=== PATIENT | female | born 1985 | race Two or more races ===

== ENCOUNTER 2023-08-26 09:32 | Emergency (ER) | payer MEDICAID ==
[~2023-08-26] VITALS: Ht 162.6 cm; Wt 86.2 kg
[2023-08-26] MEDS ORDERED: diphenhydrAMINE 50 MG/1 ML VIAL IV ONE (10:15)
[2023-08-26] MEDS ORDERED: IV NORMAL SALINE 1000 ML BAG IV ONE (10:15)
[2023-08-26] MEDS ORDERED: diphenhydrAMINE 50 MG/1 ML VIAL ONE (10:24)
[2023-08-26 10:33] LABS: BASOPHILS # (AUTO) 0.2 K/UL (0.0-0.2); BASOPHILS % (AUTO) 2.7 % (0.0-2.0); EOSINOPHILS # (AUTO) 0.5 K/uL (0.0-0.7); EOSINOPHILS % (AUTO) 5.5 % (0.0-7.0); HEMATOCRIT 37.9 % (31.2-41.9); HEMOGLOBIN 12.4 g/dL (10.9-14.3); LYMPHOCYTES # (AUTO) 1.3 K/uL (0.8-4.8); LYMPHOCYTES % (AUTO) 14.6 % (20.5-51.5); MEAN CORPUSCULAR HEMOGLOBIN 26.7 uug (24.7-32.8); MEAN CORPUSCULAR HGB CONC 33 g/dL (32.3-35.6); MEAN CORPUSCULAR VOLUME 81.7 fL (75.5-95.3); MONOCYTES # (AUTO) 0.5 K/uL (0.1-1.30); MONOCYTES % (AUTO) 5.6 % (0.0-11.0); NEUTROPHILS # (AUTO) 6.3 K/uL (1.8-8.9); NEUTROPHILS % (AUTO) 71.6 % (38.5-71.5); PLATELET COUNT (AUTO) 481 K/uL (179-408); RED BLOOD CELL COUNT(AUTO) 4.64 MIL/uL (3.63-4.92); RED CELL DISTRIBUTION WIDTH 15.7 % (12.3-17.7); WHITE BLOOD COUNT (AUTO) 8.9 K/uL (3.8-11.8)
[2023-08-26 10:45] LABS: BILIRUBIN,TOTAL 0.5 mg/dL (0.2-1.0); CALCIUM 9.5 mg/dL (8.5-10.1); CREATININE 0.8 mg/dL (0.6-1.3); POTASSIUM 4.3 mmol/L (3.5-5.1); TOTAL PROTEIN, SERUM 8.1 g/dL (6.4-8.2)
[2023-08-26 10:51] LABS: DIFFERENTIAL COMMENT 1
[2023-08-26 10:53] LABS: THYROID STIMULATING HORMONE 1.217 mIU/mL (0.358-3.740)
[2023-08-26] MEDS ORDERED: DIPH25CA83 PO (11:36)
[2023-08-26 12:15] VITALS: O2SAT 99
[2023-08-26 12:23] LABS: MAGNESIUM 2.1 mg/dL (1.8-2.4); PHOSPHOROUS 3.7 mg/dL (2.5-4.9)
== END 2023-08-26 12:27 | disposition home or self-care (01) ==
LOC: ER 09:32
DX: L29.9 Pruritus, unspecified (principal); R00.2 Palpitations; R07.89 Other chest pain; Z90.49 Acquired absence of other specified parts of digestive tract; Z79.899 Other long term (current) drug therapy
CPT/HCPCS: 99285; 96374; 71045; 96361; 80053; 83735; 84100; 84443; 85025; 36415; 93005; J1200; J7040; A4606; A4663

== ENCOUNTER 2024-06-06 09:17 | Emergency (ER) | payer MEDICAID, MEDICARE, OTHER ==
[~2024-06-06] VITALS: Ht 165.1 cm; Wt 86.2 kg
[~2024-06-06 09:17] MED LIST: DIPH25CA83 PO
[2024-06-06] MEDS ORDERED: HYDROCODONE/APAP 10-325 MG TABLET ONE (09:50)
[2024-06-06 10:00] LABS: BASOPHILS % (AUTO) 0.3 % (0.0-2.0); EOSINOPHILS # (AUTO) 0.4 K/uL (0.0-0.7); EOSINOPHILS % (AUTO) 3.3 % (0.0-7.0); HEMATOCRIT 35.7 % (31.2-41.9); HEMOGLOBIN 11.5 g/dL (10.9-14.3); LYMPHOCYTES # (AUTO) 1.3 K/uL (0.8-4.8); LYMPHOCYTES % (AUTO) 11.1 % (20.5-51.5); MEAN CORPUSCULAR HEMOGLOBIN 26.3 uug (24.7-32.8); MEAN CORPUSCULAR HGB CONC 32 g/dL (32.3-35.6); MEAN CORPUSCULAR VOLUME 81.4 fL (75.5-95.3); MONOCYTES # (AUTO) 0.6 K/uL (0.1-1.30); MONOCYTES % (AUTO) 5.1 % (0.0-11.0); NEUTROPHILS # (AUTO) 9.2 K/uL (1.8-8.9); NEUTROPHILS % (AUTO) 80.2 % (38.5-71.5); PLATELET COUNT (AUTO) 405 K/uL (179-408); RED BLOOD CELL COUNT(AUTO) 4.38 MIL/uL (3.63-4.92); WHITE BLOOD COUNT (AUTO) 11.5 K/uL (3.8-11.8)
[2024-06-06] MEDS: HYDROCODONE/APAP 10-325 MG TABLET PO ONE (10:02)
[2024-06-06 10:11] LABS: CREATININE 0.8 mg/dL (0.6-1.3); DIFFERENTIAL COMMENT 1; POTASSIUM 4.4 mmol/L (3.5-5.1)
[2024-06-06 10:17] LABS: ALBUMIN 3.8 g/dL (3.4-5.0); BILIRUBIN,TOTAL 0.3 mg/dL (0.2-1.0); TOTAL PROTEIN, SERUM 7.5 g/dL (6.4-8.2)
[2024-06-06 10:30] LABS: *BILIRUBIN,URIN NEGATIVE (NEGATIVE); *BLOOD, URINE NEGATIVE (NEGATIVE); *CLARITY,URINE CLEAR (CLEAR); *COLOR,URINE YELLOW (YELLOW); *KETONES,URINE NEGATIVE (NEGATIVE); *PROTEIN,URINE 1+ (NEGATIVE); *UROBILINOGEN,URINE 0.2 E.U./dl (NORMAL); LEUKOCYTE ESTERASE ,URINE NEGATIVE (NEGATIVE); NITRITE, URINE NEGATIVE (NEGATIVE); PH,URINE 6.5 (5.0-8.0); UGLUCOSE NEGATIVE (NEGATIVE)
[2024-06-06 10:36] LABS: *URINE HCG, QUAL NEGATIVE (NEGATIVE)
[2024-06-06] MEDS ORDERED: ONDANSETRON ODT 4 MG TAB.RAPDIS SL ONE (11:00)
[2024-06-06 11:07] LABS: IRON, SERUM 26 ug/dL (50-175)
[2024-06-06 11:36] LABS: RBC,URINE NONE SEEN /HPF (0-3)
[2024-06-06 11:37] LABS: BACTERIA,URINE MODERATE /HPF (NONE SEEN); SQUAMOUS EPITHELIAL CELL,UR MODERATE /HPF (NONE SEEN); WBC,URINE 0-3 /HPF (0-3)
[2024-06-06] MEDS ORDERED: HYDR-3980 PO (12:24)
[2024-06-06] MEDS ORDERED: FLAS1EAC2 TP (12:24)
[2024-06-06] MEDS ORDERED: FLAS1KIT2 TP (12:24)
[2024-06-06] MEDS ORDERED: FERR325T23 PO (12:24)
[2024-06-06 12:36] VITALS: BP 107/58; O2SAT 98
== END 2024-06-06 12:39 | disposition home or self-care (01) ==
LOC: ER 09:19
DX: S30.0XXA Contusion of lower back and pelvis, initial encounter (principal); R55 Syncope and collapse; D50.9 Iron deficiency anemia, unspecified; R10.2 Pelvic and perineal pain; Z98.890 Other specified postprocedural states; Z79.899 Other long term (current) drug therapy; W17.89XA Other fall from one level to another, initial encounter; Y93.89 Activity, other specified; Y92.89 Other specified places as the place of occurrence of the external cause; Y99.8 Other external cause status
CPT/HCPCS: 36415; 72220; 83550; 84703; 85025; 93005; A4606; A4663